=== PATIENT | male | born 1960 | race Caucasian/White ===

== ENCOUNTER 2017-01-15 19:40 | Inpatient (IN) | payer BC, OTHER ==
[~2017-01-15] VITALS: Ht 170.2 cm; Wt 108.9 kg
--- NOTE | 2017-01-15 20:00 | NUR ---
Pt biba from home for witness syncopal episode and now complains of right sided headache. Pt alert and oriented x 4, no neuro deficits noted at this time. Equal push/pulls to all extremities. Pt seen by Dr. Singh awaiting further orders. Pt resting in position of comfort for self
--- NOTE | 2017-01-15 20:15 | NUR ---
Pt to CT via tam
[2017-01-15] MEDS ORDERED: ZINC50TA65 PO (20:22)
[2017-01-15] MEDS ORDERED: VITA400C24 PO (20:22)
[2017-01-15] MEDS ORDERED: SITA100T PO (20:22)
[2017-01-15] MEDS ORDERED: MAGN500C16 PO (20:22)
[2017-01-15] MEDS ORDERED: METF500T4 PO (20:22)
[2017-01-15] MEDS ORDERED: CHOL50004 PO (20:22)
[2017-01-15] MEDS ORDERED: ASCO-382 PO (20:22)
[2017-01-15] MEDS ORDERED: BIOT5000 PO (20:22)
[2017-01-15] MEDS ORDERED: OMEG1CAP PO (20:22)
[2017-01-15] MEDS ORDERED: AMLO10TA2 PO (20:22)
[2017-01-15] MEDS ORDERED: POTASSIUM GLUCONATE PEG (20:22)
[2017-01-15] MEDS ORDERED: WARF1TAB47 PO (20:22)
[2017-01-15] MEDS ORDERED: LACT1CAP71 PO (20:22)
[2017-01-15] MEDS ORDERED: LORA10TA7 PO (20:22)
[2017-01-15] MEDS ORDERED: SIMV40TA5 PO (20:22)
[2017-01-15] MEDS ORDERED: WARF10TA2 PO (20:22)
[2017-01-15] MEDS ORDERED: CYAN10009 PO (20:22)
[2017-01-15] MEDS ORDERED: LOSA100T15 PO (20:22)
[2017-01-15 20:24] LABS: BASOPHILS # (AUTO) 0.1 K/uL (0.0-8.0); EOSINOPHILS # (AUTO) 0.6 K/uL (0.0-0.7); EOSINOPHILS % (AUTO) 5.3 % (0.0-7.0); HEMATOCRIT 46.1 % (40-50); HEMOGLOBIN 15.3 G/DL (14.0-18.0); LYMPHOCYTES # (AUTO) 2.2 K/UL (0.8-4.8); LYMPHOCYTES % (AUTO) 21.2 % (20.5-51.5); MEAN CORPUSCULAR HEMOGLOBIN 30.1 UUG (27.0-31.0); MEAN CORPUSCULAR HGB CONC 33 g/dL (32.0-37.0); MEAN CORPUSCULAR VOLUME 90.7 FL (82.0-92.0); MONOCYTES # (AUTO) 0.8 K/UL (0.1-1.30); MONOCYTES % (AUTO) 7.7 % (0.0-11.0); NEUTROPHILS # (AUTO) 6.8 K/UL (1.8-8.9); NEUTROPHILS % (AUTO) 64.8 % (38.5-71.5); PLATELET COUNT (AUTO) 272 K/UL (150-450); RED BLOOD CELL COUNT(AUTO) 5.09 MIL/UL (4.7-6.1); WHITE BLOOD COUNT (AUTO) 10.5 K/UL (4.0-11.2)
[2017-01-15 20:25] LABS: CREATININE 1.2 mg/dL (0.6-1.3); POTASSIUM 3.7 mmol/L (3.5-5.1)
--- NOTE | 2017-01-15 20:37 | NUR ---
Pt returned from CT via gurney. Resting in position of comfort for self.
--- NOTE | 2017-01-15 21:10 | NUR ---
RAFI PAGED, DR. MONTANO BATTERY REPAIRER. AWAITING CALL BACK.
--- NOTE | 2017-01-15 21:45 | NUR ---
pt up to br. Denies dizziness, denies lightheadedness.
--- NOTE | 2017-01-15 21:50 | NUR ---
Dr. Singh spoke with Dr. Garcia, pt to be admitted.
--- NOTE | 2017-01-15 22:00 | NUR ---
Pt resting in position of comfort for self. No complaints at this time. Family at bedside.
[2017-01-15] MEDS ORDERED: DEXTROSE 50% 50 ML DISP.SYRIN IV PRN (22:45)
[2017-01-15] MEDS ORDERED: INSULIN REGULAR, HUMAN 300 UNIT/3 ML VIAL SQ PRN (22:45)
[2017-01-15] MEDS ORDERED: HYDROMORPHONE 1 MG/1 ML DISP.SYRIN IV PRN (22:45)
[2017-01-15] MEDS ORDERED: ONDANSETRON 4 MG/2 ML VIAL IV PRN (22:45)
--- NOTE | 2017-01-15 23:30 | NUR ---
Pt resting in position of comfort for self. Resp even and unlabored. No neuro deficits noted. No complaints at this time. Admission pending. Family at bedside.
[2017-01-16 00:30] VITALS: BP 147/83
--- NOTE | 2017-01-16 00:40 | NUR ---
TEXTED DR. CALLE FOR MRI APPROVAL.
--- NOTE | 2017-01-16 01:00 | NUR ---
Received patient from ER via wheelchair. A&Ox4. Tele SR with left bundle branch block. Skin intact. Ambulatory. Admission protocol followed. Ushered patient to room Safety initiated. Call light within reach. Will continue to monitor.
[2017-01-16 04:00] VITALS: BP 111/60
--- NOTE | 2017-01-16 06:00 | NUR ---
No changes t/o shift. No acute distress noted. Patient slept intermittently t/o shift. A&O x 4. Tele SR with 1st degree Bundle Branch Block. No c/o weakness. Vital signs stable. Safety and comfort measures maintained t/o shift. No BM. Urinated x 2. All needs met.
[2017-01-16] MEDS: BLOOD SUGAR DIAGNOSTIC 1 EACH STRIP VI SCH ×4 (06:34→21:10)
[2017-01-16 06:45] LABS: BASOPHILS # (AUTO) 0.1 K/uL (0.0-8.0); BASOPHILS % (AUTO) 1.2 % (0.0-2.0); EOSINOPHILS # (AUTO) 0.4 K/uL (0.0-0.7); EOSINOPHILS % (AUTO) 4.5 % (0.0-7.0); HEMATOCRIT 42.8 % (36.7-47.1); HEMOGLOBIN 14.4 g/dL (12.5-16.3); LYMPHOCYTES # (AUTO) 1.8 K/uL (20.0-40.0); LYMPHOCYTES % (AUTO) 20.6 % (20.5-51.5); MEAN CORPUSCULAR HEMOGLOBIN 30.9 uug (23.8-33.4); MEAN CORPUSCULAR HGB CONC 34 g/dL (32.5-36.3); MEAN CORPUSCULAR VOLUME 91.5 fL (73.0-96.2); MONOCYTES # (AUTO) 0.9 K/uL (2.0-10.0); MONOCYTES % (AUTO) 9.8 % (0.0-11.0); NEUTROPHILS # (AUTO) 5.7 K/uL (1.8-8.9); NEUTROPHILS % (AUTO) 63.9 % (38.5-71.5); PLATELET COUNT (AUTO) 231 K/uL (152-348); RED BLOOD CELL COUNT(AUTO) 4.68 MIL/uL (4.06-5.63)
[2017-01-16] MEDS ORDERED: HYDROCODONE/APAP 5-325MG TABLET PO PRN (07:30)
[2017-01-16 07:52] LABS: BILIRUBIN,TOTAL 2.2 mg/dL (0.2-1.0); CREATININE 0.9 mg/dL (0.6-1.3); MAGNESIUM 2.2 mg/dL (1.8-2.4); PHOSPHOROUS 3.4 mg/dL (2.5-4.9); TOTAL PROTEIN, SERUM 6.9 g/dL (6.4-8.2)
--- NOTE | 2017-01-16 08:00 | NUR ---
AWAKE ALERT COOPERATE WELL NO SOB OR PAIN ON FALL AND ASPIRATION PRECAUTION CALL WALLACE IN REACH
[2017-01-16] MEDS: CYANOCOBALAMIN 1,000 MCG TABLET PO SCH (08:34)
[2017-01-16] MEDS: OMEGA-3 FATTY ACIDS/FISH OIL CAPSULE PO SCH (08:34)
[2017-01-16] MEDS: PANTOPRAZOLE SODIUM 40 MG TABLET.DR PO SCH (08:35)
[2017-01-16] MEDS: LINAGLIPTIN 5 MG TABLET PO SCH (08:36)
[2017-01-16] MEDS: LACTOBACILLUS RHAMNOSUS GG 1 EACH CAPSULE PO SCH (08:36)
[2017-01-16] MEDS: LORATADINE 10 MG TABLET PO SCH (08:36)
[2017-01-16] MEDS: LOSARTAN POTASSIUM 50 MG TABLET PO SCH (08:37)
[2017-01-16] MEDS: AMLODIPINE 10 MG TABLET PO SCH (08:38)
[2017-01-16] MEDS: MAGNESIUM OXIDE 250 MG TABLET PO SCH ×2 (08:38→17:13)
[2017-01-16] MEDS: FUROSEMIDE 40 MG/4 ML VIAL IV SCH ×3 (08:39→20:55)
[2017-01-16] MEDS ORDERED: Medication Not On Formulary EA (Losartan Potassium 100 MG) PO SCH (09:00)
[2017-01-16] MEDS ORDERED: Medication Not On Formulary EA (Magnesium Oxide (Magnesium) 500 MG) PO SCH (09:00)
[2017-01-16] MEDS ORDERED: Medication Not On Formulary EA (Lactobacillus Combo No.11 (Probiotic) 1 EACH) PO SCH (09:00)
[2017-01-16] MEDS ORDERED: Medication Not On Formulary EA (Sitagliptin Phosphate (Januvia) 100 MG) PO SCH (09:00)
[2017-01-16] MEDS ORDERED: POTASSIUM CHLORIDE 20 MEQ TAB.PRT.SR PO ONE ×2 (10:00)
[2017-01-16 10:30] VITALS: BP 127/79
--- NOTE | 2017-01-16 10:30 | NUR ---
TO MRI VIA AMBULANCE CONDITION STABLE
[2017-01-16 10:58] LABS: THYROID STIMULATING HORMONE 2.952 mIU/mL (0.358-3.740)
--- NOTE | 2017-01-16 11:45 | NUR ---
BACK TO ROOM UNABLE TO DO MRI BECAUSE OF HEART VALVE QUESTION DR MARTÍNEZ WAS INFORM
--- NOTE | 2017-01-16 12:15 | NUR ---
ECCHOCARDIOGRAM AT BEDSIDE ANAHI PROCEDURE WELL CLAIM APPROVER WAS INFORM OF PATIENT WOULD LIKE TO TRANSFER TO [facility] WORKING ON IT
[2017-01-16] MEDS: ACETAMINOPHEN 325 MG TABLET PO PRN (13:21)
--- NOTE | 2017-01-16 14:00 | NUR ---
D/C PLANNING TO [facility] WAITING FOR BED AVAILABLE TRANSFER INSTRUCTION INFORM TO PATIENT AND FAMILY ,VERBALIZES UNDER STAND AND SIGNS
[2017-01-16 14:44] LABS: *BILIRUBIN,URIN NEGATIVE (NEGATIVE); *BLOOD, URINE Trace-intact (NEGATIVE); *CLARITY,URINE CLEAR (CLEAR); *COLOR,URINE YELLOW (YELLOW); *KETONES,URINE NEGATIVE (NEGATIVE); *PROTEIN,URINE NEGATIVE (NEGATIVE); *UROBILINOGEN,URINE 0.2 E.U./dl (NORMAL); LEUKOCYTE ESTERASE ,URINE NEGATIVE (NEGATIVE); NITRITE, URINE NEGATIVE (NEGATIVE); UGLUCOSE NEGATIVE (NEGATIVE)
[2017-01-16 15:49] VITALS: BP 131/75
[2017-01-16] MEDS ORDERED: ACET325T53 PO (16:21)
[2017-01-16] MEDS ORDERED: FURO10VI IV (16:21)
[2017-01-16] MEDS ORDERED: HYDR-3326 PO (16:21)
[2017-01-16 16:22] LABS: RBC,URINE 0-3 /HPF (0-3); WBC,URINE 0-3 /HPF (0-3)
--- NOTE | 2017-01-16 17:30 | NUR ---
CONDITION STABLE NO ACUTE DISTRESS PAIN AND H/A UNDER CONTROL SAFETY MEASURE PROVIDED CALL LIGHT IN REACH
--- NOTE | 2017-01-16 20:00 | NUR ---
RECEIVED PATIENT AWAKE IN BED WITH AT BEDSIDE. PATIENT IS PATIENTLY WAITING FOR BED TO BE AVAILABLE AT [facility]. PATIENT DENIES ANY CHEST PAIN OR DISCOMFORT. ON TELE SR. VS WNL. HEPLOCK INTACT AND PATENT. CALL LIGHT IN REACH. ALL NEEDS ATTENDED. WILL CONTINUE TO MONITOR.
--- NOTE | 2017-01-16 20:15 | NUR ---
DOOR FURRING INSTALLER CALLED PRINCESS AT [facility] "BED CONTROL" TO SEE IF A BED WAS AVAILABLE FOR PATIENTS TRANSFER. NO BED AVAILABLE AT THIS TIME. PATIENT AND VERBALIZED UNDERSTANDING. ON TELE SR. WILL CONTINUE TO MONITOR.
[2017-01-16 20:56] VITALS: BP 128/71
[2017-01-17 00:24] VITALS: BP 130/79
[2017-01-17 04:00] VITALS: BP 129/74
--- NOTE | 2017-01-17 06:12 | NUR ---
PATIENT ASLEEP. SLEPT WELL. NO C/O ANY CHEST PAIN THROUGHOUT THE NIGHT. ON TELE. VS WNL. CALL LIGHT IN REACH. ALL NEEDS ATTENDED.
[2017-01-17] MEDS: PANTOPRAZOLE SODIUM 40 MG TABLET.DR PO SCH (06:20)
[2017-01-17] MEDS: BLOOD SUGAR DIAGNOSTIC 1 EACH STRIP VI SCH ×3 (06:46→17:00)
[2017-01-17 07:15] LABS: BILIRUBIN,TOTAL 2.7 mg/dL (0.2-1.0); CREATININE 0.9 mg/dL (0.6-1.3); MAGNESIUM 2.2 mg/dL (1.8-2.4); PHOSPHOROUS 3.4 mg/dL (2.5-4.9); POTASSIUM 3.4 mmol/L (3.5-5.1); TOTAL PROTEIN, SERUM 6.6 g/dL (6.4-8.2)
[2017-01-17 07:29] LABS: BASOPHILS # (AUTO) 0.1 K/uL (0.0-8.0); BASOPHILS % (AUTO) 1.2 % (0.0-2.0); EOSINOPHILS # (AUTO) 0.4 K/uL (0.0-0.7); EOSINOPHILS % (AUTO) 5.3 % (0.0-7.0); HEMATOCRIT 43.3 % (36.7-47.1); HEMOGLOBIN 14.7 g/dL (12.5-16.3); LYMPHOCYTES % (AUTO) 28.6 % (20.5-51.5); MEAN CORPUSCULAR HEMOGLOBIN 31.1 uug (23.8-33.4); MEAN CORPUSCULAR HGB CONC 34 g/dL (32.5-36.3); MEAN CORPUSCULAR VOLUME 91.9 fL (73.0-96.2); MONOCYTES # (AUTO) 0.7 K/uL (2.0-10.0); MONOCYTES % (AUTO) 9.9 % (0.0-11.0); NEUTROPHILS # (AUTO) 3.8 K/uL (1.8-8.9); PLATELET COUNT (AUTO) 234 K/uL (152-348); RED BLOOD CELL COUNT(AUTO) 4.71 MIL/uL (4.06-5.63); WHITE BLOOD COUNT (AUTO) 6.9 K/uL (3.6-10.2)
--- NOTE | 2017-01-17 08:00 | NUR ---
RESTING WELL AND QUIET AT THIS TIME NO SOB OR PAIN ON FALL PRECAUTION CALL LIGHT IN REACH AND INSTRUCTION TO CALL WHEN NEEDED
[2017-01-17] MEDS: FUROSEMIDE 40 MG/4 ML VIAL IV SCH (09:00)
[2017-01-17] MEDS: OMEGA-3 FATTY ACIDS/FISH OIL CAPSULE PO SCH (09:07)
[2017-01-17] MEDS: LINAGLIPTIN 5 MG TABLET PO SCH (09:08)
[2017-01-17] MEDS: CYANOCOBALAMIN 1,000 MCG TABLET PO SCH (09:08)
[2017-01-17] MEDS: AMLODIPINE 10 MG TABLET PO SCH (09:08)
[2017-01-17] MEDS: LACTOBACILLUS RHAMNOSUS GG 1 EACH CAPSULE PO SCH (09:08)
[2017-01-17] MEDS: LOSARTAN POTASSIUM 50 MG TABLET PO SCH (09:08)
[2017-01-17] MEDS: LORATADINE 10 MG TABLET PO SCH (09:08)
[2017-01-17] MEDS: MAGNESIUM OXIDE 250 MG TABLET PO SCH ×2 (09:09→17:00)
[2017-01-17] MEDS ORDERED: POTASSIUM CHLORIDE 20 MEQ TAB.PRT.SR PO ONE (10:00)
[2017-01-17] MEDS: ACETAMINOPHEN 325 MG TABLET PO PRN (10:50)
--- NOTE | 2017-01-17 11:00 | NUR ---
RESCHEDULE FOR MRI AGAIN TODAY CHECK LIST COMPLETE AND D/C TO [facility] WAS PENDING FOR BED AVAILABLE
[2017-01-17 11:09] VITALS: BP 125/76
--- NOTE | 2017-01-17 14:00 | NUR ---
SCHEDULE FOR US OF ABD AND CAROTID TODAY PT WAS INFORM
[2017-01-17 16:00] VITALS: BP 133/80
--- NOTE | 2017-01-17 16:50 | NUR ---
REPORT GIVEN TO MILES MAN PRIOR TO MRI TODAY AND AFTER MRI PATIENT WILL GO TO [facility] ALL COPY OF CHART GIVE TO MILES ALBERTO TO [facility] PATIENT WAS INFORM OF SITUATION,UNDERSTAND
--- NOTE | 2017-01-17 17:00 | NUR ---
TO MRI CONDITION STABLE NO CHEST PAIN OR SOB REPORT GIVEN TO [facility] NURSE :TANI" VIA TELEPHONE THAT PATIENT WILL GO STRAIGHT TO [facility] AFTER MRI COMPLETE
== END 2017-01-17 17:00 | disposition short-term general hospital (02) | DRG 64 ==
LOC: ER 19:41 → TELE 22:45
PROVIDERS: ADMIT Internal Medicine; ATTEND Internal Medicine
DX: I63.9 Cerebral infarction, unspecified (principal); G93.6 Cerebral edema; J81.1 Chronic pulmonary edema; C71.0 Malignant neoplasm of cerebrum, except lobes and ventricles; G45.9 Transient cerebral ischemic attack, unspecified; I42.9 Cardiomyopathy, unspecified; S42.002A Fracture of unspecified part of left clavicle, initial encounter for closed fracture; E66.9 Obesity, unspecified; E78.5 Hyperlipidemia, unspecified; E87.6 Hypokalemia; I10 Essential (primary) hypertension; Z95.1 Presence of aortocoronary bypass graft; Z95.2 Presence of prosthetic heart valve; E11.9 Type 2 diabetes mellitus without complications; E80.6 Other disorders of bilirubin metabolism; Z68.37 Body mass index [BMI] 37.0-37.9, adult; Z88.0 Allergy status to penicillin; I44.7 Left bundle-branch block, unspecified; X58.XXXA Exposure to other specified factors, initial encounter; Y93.9 Activity, unspecified; Y92.009 Unspecified place in unspecified non-institutional (private) residence as the place of occurrence of the external cause; I34.0 Nonrheumatic mitral (valve) insufficiency; I37.1 Nonrheumatic pulmonary valve insufficiency; I36.1 Nonrheumatic tricuspid (valve) insufficiency
CPT/HCPCS: 36415; 70030-TC; 70450; 70551; 71010; 83735; 84100; 84443; 85025; 85610; 85730; 87086; 93005; 93307; A4663; J1815; J1940